=== PATIENT | male | born 1965 | race Caucasian/White ===

== ENCOUNTER 2021-04-03 17:35 | Inpatient (IN) | payer BC, OTHER ==
--- OUTSIDE RECORDS SUMMARY | 2021-04-03 17:37 | XMS REPORT | Continuity of Care Document ---
:1965 Author Organization [facility] t Address [address] [place] [address] Care Team Providers Name Role Phone Sinan Mistry NP Attending Clinician Denys AIKEN Attending Clinician Doctor Unassigned, Name Attending Clinician Unavailable Lab, Fam Pob I Attending Clinician Unavailable Problems This patient has no known problems. Allergies, Adverse Reactions, Alerts This patient has no known allergies or adverse reactions. Medications This patient has no known medications. Procedures This patient has no known procedures. Encounters Start End Encounter Admission Attending Care Care Encounter Source Date/Time Date/Time Type Type Clinicians Facility Department ID 2021-03-31 2021-03-31 Emergency [facility] [id number] 11:55:00 15:06:00 Roxann Garcia [id number] [place] [id number] [place] [phone] [phone] 2021-03-31 Telephone Denys [facility] [id number] 00:00:00 00:00:00 Shan [employer] [employer] [id number] [place] [id number] [facility] [phone] nal [address] One 2021-03-31 2021-03-31 Telephone Dneys [facility] [id number] 00:00:00 00:00:00 Shan [facility] [id number] [place] [id number] Professio [phone] nal [facility] Office [address] One 2021-03-30 2021-03-30 Telephone Denys [facility] [id number] 00:00:00 00:00:00 Shan [facility] [id number] [place] [id number] Professio [phone] nal [facility] Office Building One 2021-03-29 2021-03-29 [facility] [id number] 00:00:00 00:00:00 Shan [facility] [id number] [place] [id number] Professio [phone] nal [facility] Office [address] One 2021-03-24 2021-03-24 [facility] [id number] 00:00:00 00:00:00 Shan [facility] [id number] [place] [id number] Professio [phone] nal [facility] [address] One 2021-03-08 2021-03-08 Refill Doctor [facility] [id number] 00:00:00 00:00:00 Unassigned, Health [id number] [place] [id number] Professio [phone] nal [facility] [address] One 2021-03-08 2021-03-08 Refill Doctor [facility] [id number] 00:00:00 00:00:00 Unassigned, Health [id number] [place] [id number] Professio [phone] nal [facility] [address] One 2021-02-11 2021-02-11 [facility] [id number] 00:00:00 00:00:00 Shan [facility] [id number] [place] [id number] Professio [phone] [place] [address] [address] 2021-01-26 2021-01-26 Learning And Development Analyst Lab, [facility] [id number] 10:22:46 10:42:46 [facility] [id number] [place] [id number] Professio [phone] nal 044 Office [address] One 2021-01-26 2021-01-26 Office Mcfarlane, [facility] [id number] 07:03:39 07:18:39 Visit [facility] [id number] [place] [id number] Professio [phone] nal 044 [address] One Results This patient has no known results.
[2021-04-03] MEDS ORDERED: MORPHINE 4 MG/ML SYR ONE (19:09)
[2021-04-03] MEDS ORDERED: ONDANSETRON 4 MG/2 ML VIAL ONE (19:09)
[2021-04-03 19:14] LABS: Basophils % 1.5 % (0-1.3); Hematocrit 47.4 % (39.6-49.0); Lymphocytes % 31.3 % (15.3-44.8)
[2021-04-03 19:20] LABS: Protime INR 1.15
[2021-04-03 19:30] LABS: ALT/SGPT 42 U/L (12-78); AST/SGOT 17 U/L (15-37); Alkaline Phosphatase 51 U/L (45-117); BUN Blood Urea Nitrogen 18 mg/dL (7-18); Bicarbonate 25 mmol/L (21-32); Bilirubin Direct < 0.1 mg/dL (0-0.2); Bilirubin Total 0.4 mg/dL (0.2-1.0); Glucose Level 220 mg/dL (74-106); Magnesium 1.8 mg/dL (1.8-2.4); NT PRO-BNP 17 pg/mL (<125); Protein, Total 7.7 g/dL (6.4-8.2); Sodium Level 139 mmol/L (136-145); Troponin (Emerg Dept Use Only) < 0.02 ng/mL (0.0-0.045)
--- NOTE | 2021-04-03 20:02 | RAD REPORT ---
EXAM DESCRIPTION: Stefan Single View04/03/2021 7:24 pm CLINICAL HISTORY: Chest pain COMPARISON: 2014 FINDINGS: The lungs appear clear of acute infiltrate. The heart is normal size IMPRESSION: No acute abnormalities displayed
--- NOTE | 2021-04-03 20:49 | RAD REPORT ---
EXAM DESCRIPTION: CT - Angio Aorta For Dissection - 04/03/2021 8:34 pm CLINICAL HISTORY: . Chest and abdominal pain COMPARISON: None TECHNIQUE: Computed tomography angiography of the chest, abdomen pelvis were obtained. 100 cc Isovue 370 was administered intravenously. Coronal and sagittal reconstruction were performed. MIP 3D reconstruction was performed All CT scans are performed using dose optimization technique as appropriate and may include automated exposure control or mA/KV adjustment according to patient size. FINDINGS: An aortic dissection is not seen. An aortic aneurysm is not displayed. The celiac, SMA and DILIP are patent . 2 main left renal arteries A lung consolidation is not present. A pericardial effusion is not seen. A pleural effusion is not n oted. Fatty liver. Spleen, pancreas adrenals kidneys demonstrate no significant abnormality. The appendix is normal. There no evidence diverticulitis. Small left inguinal hernia contains fat. Sm all umbilical hernia Spondylosis involves lumbar spine resulting in spinal stenosis IMPRESSION: Negative for an aortic dissection.
--- NOTE | 2021-04-03 21:06 | EDPHYS ---
Physician Documentation [facility] Name: Ronaldo Corbett Age: 55 yrs Sex: Male : 1965 Arrival Date: 04/03/2021 Time: 17:37 Bed 4 Private MD: ED Physician Chavo Miles HPI: 04/03 18:16 This 55 yrs old Male presents to ER via Ambulatory with complaints of High jmm Blood Pressure, Chest Pain. 18:16 Onset: The symptoms/episode began/occurred gradually, 5 day(s) ago. Modifying factors: jmm The symptoms are aggravated by activity, The symptoms are alleviated by remaining still. This is a 55 year old male with a history of htn, DM that presents to the ED with complaints of left sided chest pain which radiates to the back. States his BP went to 200 systolic today with worsening pain. . Historical: - Allergies: 18:13 No Known Allergies; aa5 - PMHx: 18:13 Hypertension; Diabetes - IDDM; aa5 - PSHx: 18:13 facial sx; aa5 - Immunization history:: Adult Immunizations unknown. - Social history:: Smoking status: Patient denies any tobacco usage or history of. ROS: 18:16 Constitutional: Negative for fever, chills, and weight loss. jmm 18:16 Cardiovascular: Positive for chest pain. 18:16 All other systems are negative. Exam: 18:16 Constitutional: This is a well developed, well nourished patient who is awake, alert, jmm and in no acute distress. Head/Face: atraumatic. Eyes: EOMI, no conjunctival erythema appreciated ENT: Moist Mucus Membranes Neck: Trachea midline, Supple Chest/axilla: Normal chest wall appearance and motion. Cardiovascular: Regular rate and rhythm. No edema appreciated Respiratory: Normal respirations, no respiratory distress appreciated 18:16 Skin: General appearance color normal MS/ Extremity: Moves all extremities, no obvious deformities appreciated, no edema noted to the lower extremities Neuro: Awake and alert, normal gait Psych: Behavior is normal, Mood is normal, Patient is cooperative and pleasant 18:16 Abdomen/GI: Inspection: abdomen appears normal, Bowel sounds: normal, Palpation: soft, mild abdominal tenderness, in the left upper quadrant. Vital Signs: 18:12 BP 159 / 97; Pulse 82; Resp 18 S; Temp 97.8(TE); Pulse Ox 99% on R/A; Weight 121.11 kg aa5 (R); Height 6 ft. 2 in. (187.96 cm) (R); 19:30 BP 139 / 90; Pulse 82; Resp 18; Pulse Ox 98% on R/A; lp1 21:00 BP 157 / 84; Pulse 78; Resp 20; Pulse Ox 97% on R/A; lp1 22:30 BP 149 / 96; Pulse 73; Resp 15; Pulse Ox 98% on R/A; lp1 18:12 Body Mass Index 34.28 (121.11 kg, 187.96 cm) aa5 MDM: 18:16 Patient medically screened. adrien 21:05 Data reviewed: vital signs, nurses notes. Counseling: I had a detailed discussion with magdaleno the patient and/or guardian regarding: the historical points, exam findings, and any diagnostic results supporting the discharge/admit diagnosis, lab results, radiology results, the need for further work-up and treatment in the hospital. ED course: I discussed the patient with Maximiliano Wells PA-C whom accepted the patient to Dr. Antony's service. . 04/03 18:40 Order name: Basic Metabolic Panel; Complete [facility]: [facility] 04/03 18:40 Order name: CBC with Diff; Complete [facility]: 19:26 [facility] 04/03 18:40 Order name: LFT's; Complete Time: 19:32 [facility] 04/03 18:40 Order name: Magnesium; Complete Time: 19:32 [facility] 04/03 18:40 Order name: NT PRO-BNP; Complete Time: 19:32 [facility] 04/03 18:40 Order name: PT-INR; Complete Time: 19:32 [facility] 04/03 18:40 Order name: Troponin (emerg Dept Use Only); Complete Time: 19:32 [facility] 04/03 18:40 Order name: XRAY Chest (1 view); Complete [facility]: 20:05 [facility] 04/03 20:14 Order name: CT Aorta for Dissection; Complete Time: 21:02 [facility] 04/03 20:17 Order name: COVID-19 : Document "Date of Symptom Onset" if Symptomatic. 1 04/03 22:26 Order name: SARS-COV-2 RT PCR; Complete Time: 22:26 [facility] 04/03 18:40 Order name: EKG; Complete Time: 18:41 [facility] 04/03 18:40 Order name: Cardiac monitoring; Complete Time: 18:58 [facility] 04/03 18:40 Order name: EKG - Nurse/Tech; Complete Time: 18:58 [facility] 04/03 18:40 Order name: IV Saline Lock; Complete Time: 18:58 [facility] 04/03 18:40 Order name: Labs collected and sent; Complete Time: 18:58 [facility] 04/03 18:40 Order name: O2 Per Protocol; Complete Time: 18:53 [facility] 04/03 18:40 Order name: O2 Sat Monitoring; Complete Time: 18:53 [facility] 04/03 21:05 Order name: CONS Physician Consult EDNC Administered Medications: 18:57 Drug: Zofran (Ondansetron) 4 mg Route: IVP; Site: left wrist; hb 20:00 Follow up: Response: No adverse reaction lp1 18:58 Drug: morphine 4 mg Route: IVP; Site: left wrist; hb 20:00 Follow up: Response: Pain is decreased lp1 21:12 Drug: Aspirin Chewable Tablet 324 mg Route: PO; lp1 22:39 Follow up: Response: No adverse reaction lp1 Disposition: 04/03/21 21:06 Hospitalization ordered by Rajesh Antony for Observation. Preliminary diagnosis is Chest pain, unspecified. - Bed requested for Telemetry/MedSurg (observation). - Status is Observation. lp1 - Condition is Stable. - Problem is new. - Symptoms are unchanged. Addendum: 04/05/2021 08:02 Co-signature as Attending Physician, Chavo Miles MD I agree with the assessment and c perez plan of care. Signatures: Dispatcher [employer] EDNC Stella Taylor RN RN mw Anderson, Corey, MD MD cha Mickail, Joel, PA PA jmm Calderon, Audri RN RN aa5 Jumana Montoya RN RN lp1 Patito Gant, NADIA RN hb Corrections: (The following items were deleted from the chart) 04/03 22:36 21:06 Hospitalization Ordered by Rajesh Antony for Observation. Preliminary diagnosis mw is Chest pain, unspecified. Bed requested for Telemetry/MedSurg (observation). Status is Observation. Condition is Stable. Problem is new. Symptoms are unchanged. mir 22:58 22:36 04/03/2021 21:06 Hospitalization Ordered by Rajesh Antony for Observation. lp1 Preliminary diagnosis is Chest pain, unspecified. Bed requested for Telemetry/MedSurg (observation). Status is Observation. Condition is Stable. Problem is new. Symptoms are unchanged. mw
--- NOTE | 2021-04-03 21:06 | ER ---
Nurse's Notes [facility] Name: Ronaldo Corbett Age: 55 yrs Sex: Male : 1965 Arrival Date: 04/03/2021 Time: 17:37 Bed 4 Private MD: Diagnosis: Chest pain, unspecified Presentation: 04/03 18:12 Chief complaint: Patient states: "my blood pressure has been over 200 (systolic) for aa5 the past 5 days and I am having chest pains". Coronavirus screen: At this time, the client does not indicate any symptoms associated with coronavirus-19. Ebola Screen: Patient negative for fever greater than or equal to 101.5 degrees Fahrenheit, and additional compatible Ebola Virus Disease symptoms. Initial Sepsis Screen: Does the patient meet any 2 criteria? No. Patient's initial sepsis screen is negative. Does the patient have a suspected source of infection? No. Patient's initial sepsis screen is negative. Risk Assessment: Do you want to hurt yourself or someone else? Patient reports no desire to harm self or others. Onset of symptoms was March 2021. 18:12 Method Of Arrival: Ambulatory aa5 18:12 Acuity: MIAH 3 aa5 Historical: - Allergies: 18:13 No Known Allergies; aa5 - PMHx: 18:13 Hypertension; Diabetes - IDDM; aa5 - PSHx: 18:13 facial sx; aa5 - Immunization history:: Adult Immunizations unknown. - Social history:: Smoking status: Patient denies any tobacco usage or history of. Screenin:59 Abuse screen:. Abuse screen: Denies threats or abuse. Denies injuries from another. hb Nutritional screening: No deficits noted. Tuberculosis screening: No symptoms or risk factors identified. Fall Risk None identified. Assessment: 18:58 General: Appears in no apparent distress. Behavior is calm, cooperative. Pain: Pain hb currently is 8 out of 10 on a pain scale. Neuro: Level of Consciousness is awake, alert, obeys commands, Oriented to person, place, time, situation. Cardiovascular: Patient's skin is warm and dry. Rhythm is regular. Respiratory: Respiratory effort is even, unlabored, Respiratory pattern is regular, symmetrical. GI: No signs and/or symptoms were reported involving the gastrointestinal system. : No signs and/or symptoms were reported regarding the genitourinary system. EENT: No signs and/or symptoms were reported regarding the EENT system. Derm: Skin is pink, warm \\T\\ dry. Musculoskeletal: No signs and/or symptoms reported regarding the musculoskeletal system. 20:00 Reassessment: Patient appears in no apparent distress at this time. Denies chest pain lp1 at this time; aware of pending transfer to CT for imaging. 20:00 Neuro: Level of Consciousness is awake, alert, obeys commands. Cardiovascular: lp1 Patient's skin is warm and dry. Rhythm is regular. Respiratory: Respiratory effort is even, unlabored. Derm: Skin is pink, warm \\T\\ dry. Musculoskeletal: No deficits noted. 21:00 Reassessment: Patient appears in no apparent distress at this time. Patient is alert, lp1 oriented x 3, equal unlabored respirations, skin warm/dry/pink. 22:00 Reassessment: Patient appears in no apparent distress at this time. Patient is alert, lp1 oriented x 3, equal unlabored respirations, skin warm/dry/pink. Patient aware of pending admission. Vital Signs: 18:12 BP 159 / 97; Pulse 82; Resp 18 S; Temp 97.8(TE); Pulse Ox 99% on R/A; Weight 121.11 kg aa5 (R); Height 6 ft. 2 in. (187.96 cm) (R); 19:30 BP 139 / 90; Pulse 82; Resp 18; Pulse Ox 98% on R/A; lp1 21:00 BP 157 / 84; Pulse 78; Resp 20; Pulse Ox 97% on R/A; lp1 22:30 BP 149 / 96; Pulse 73; Resp 15; Pulse Ox 98% on R/A; lp1 18:12 Body Mass Index 34.28 (121.11 kg, 187.96 cm) aa5 ED Course: 17:37 Patient arrived in ED. rg4 18:12 Triage completed. aa5 18:12 Arm band placed on. aa5 18:12 EKG completed in triage. Results shown to MD. aa5 18:15 Lucas Delgadillo PA is PHCP. [facility] 18:15 Chavo Miles MD is Attending Physician. [facility] 18:33 Yasmani Friend, NADIA is Primary Nurse. bp 18:56 Inserted saline lock: 20 gauge in left wrist, using aseptic technique. Blood collected. hb 18:59 Patient has correct armband on for positive identification. Bed in low position. Call light in reach. classroom monitor on. Pulse ox on. NIBP on. 19:24 XRAY Chest (1 view) In Process Unspecified. EDMS 20:34 CT Aorta for Dissection In Process Unspecified. EDMS 21:06 Rajesh Antony is Hospitalizing Provider. [facility] 22:09 No provider procedures requiring assistance completed. Patient admitted, IV remains in lp1 place. Administered Medications: 18:57 Drug: Zofran (Ondansetron) 4 mg Route: IVP; Site: left wrist; hb 20:00 Follow up: Response: No adverse reaction lp1 18:58 Drug: morphine 4 mg Route: IVP; Site: left wrist; hb 20:00 Follow up: Response: Pain is decreased lp1 21:12 Drug: Aspirin Chewable Tablet 324 mg Route: PO; lp1 22:39 Follow up: Response: No adverse reaction 1 Outcome: 21:06 Decision to Hospitalize by Provider. [facility] 22:10 Condition: stable lp1 22:10 Instructed on the need for admit. 22:42 Admitted to Med/surg room 216, with chart, Report called to NADIA Lance lp1 22:58 Patient left the ED. lp1 Signatures: Dispatcher [employer] EDMS Lucas Delgadillo PA PA jmm Calderon, Audri, RN NADIA aa5 Jumana Motnoya RN RN lp1 Patito Gant RN RN hb Garcia, Rubi 4 Yasmani Friend RN RN bp
[2021-04-03] MEDS ORDERED: ASPIRIN 81 MG CHEWABLE TABLET ONE (21:30)
[2021-04-03] MEDS ORDERED: HYDRALAZINE HCL 20 MG/ML VIAL IV PRN (23:08)
[2021-04-03] MEDS ORDERED: ACETAMINOPHEN 500 MG TAB PO PRN (23:08)
[2021-04-03] MEDS ORDERED: NITROGLYCERIN 0.4 MG/TAB SL PRN (23:08)
[2021-04-03] MEDS ORDERED: ONDANSETRON 4 MG/2 ML VIAL IV PRN (23:08)
[2021-04-03] MEDS ORDERED: MORPHINE 2 MG/ML SYR IV PRN (23:08)
--- NOTE | 2021-04-04 01:04 | P.HP ---
Certification for Inpatient Patient admitted to: Observation With expected LOS: <2 Midnights Patient will require the following post-hospital care: None Practitioner: I am a practitioner with admitting privileges, knowledge of patient current condition, hospital course, and medical plan of care. Services: Services provided to patient in accordance with Admission requirements found in Title 42 Section 412.3 of the Code of Federal Regulations Patient History Date of Service: 04/04/21 Primary Care Provider: Denys Reason for admission: chest pain History of Present Illness: Mr. Corbett is a 55 yo M with HTN and DM who presents with 10/10 lower left sharp chest pain that radiates to the back. He says the pain comes at any time. He says this started last Sunday when he checked his BP and it was very elevated. He says he takes ibuprofen for the pain with mild improvement. Denies lightheadedness, dizziness, N/V. Reports diaphoresis. Family history of heart disease. Allergies No Known Drug Allergies Allergy (Verified 04/03/21 23:37) Unknown Home Medications: Amlodipine [Norvasc] 2.5 mg PO DAILY 04/04/21 Atenolol [Tenormin] 50 mg PO DAILY 04/04/21 Insulin Detemir [Levemir Flextouch] 80 unit SQ BEDTIME 04/04/21 Lisinopril [Zestril] 40 mg PO DAILY 04/04/21 Sitagliptin Phos/Metformin HCl [Janumet Xr 50-1,000 mg Tablet] 1 each PO BID 04/04/21 - Past Medical/Surgical History Has patient received pneumonia vaccine in the past: No Diabetic: Yes -: DM -: HTN -: mouth surgery - Family History Mother -: Heart disease, Diabetes Father -: Heart disease - Social History Smoking Status: Never smoker Alcohol use: No CD- Drugs: No Caffeine use: Yes Place of Residence: Home Review of Systems 10-point ROS is otherwise unremarkable Cardiovascular: Chest Pain Physical Examination - Vital Signs Temperature: 97.8 F Blood Pressure: 149/96 Pulse: 73 Respirations: 15 - Physical Exam General: Alert, In no apparent distress HEENT: Atraumatic, PERRLA, Mucous membr. moist/pink, EOMI, Sclerae nonicteric Neck: Supple, 2+ carotid pulse no bruit, No LAD, Without JVD or thyroid abnormality Respiratory: Clear to auscultation bilaterally, Normal air movement Cardiovascular: Regular rate/rhythm, Normal S1 S2 Gastrointestinal: Normal bowel sounds, No tenderness Musculoskeletal: No tenderness Integumentary: No rashes Neurological: Normal gait, Normal speech, Normal strength at 5/5 x4 extr, Normal tone, Normal affect Lymphatics: No axilla or inguinal lymphadenopathy - Studies Laboratory Data (last 24 hrs) 04/03/21 18:56: PT 13.2 H, INR 1.15 04/03/21 18:56: WBC 12.60 H, Hgb 15.9, Hct 47.4, Plt Count 262 04/03/21 18:56: Sodium 139, Potassium 4.0, BUN 18, Creatinine 0.94, Glucose 220 H, Magnesium 1.8, Total Bilirubin 0.4, AST 17, ALT 42, Alkaline Phosphatase 51 Assessment and Plan - Problems (Diagnosis) (1) HTN (hypertension) Current Visit: Yes Status: Chronic Qualifiers: Hypertension type: essential hypertension Qualified Code(s): I10 - Essential (primary) hypertension (2) T2DM (type 2 diabetes mellitus) Current Visit: Yes Status: Chronic Qualifiers: Diabetes mellitus intermediate frame tender insulin use: with group home use Diabetes mellitus complication status: without complication Qualified Code(s): E11.9 - Type 2 diabetes mellitus without complications; Z79.4 - intermediate project manager (current) use of insulin (3) Chest pain Current Visit: Yes Status: Acute Qualifiers: Chest pain type: unspecified Qualified Code(s): R07.9 - Chest pain, unspecified - Plan cardiology consulted trend troponisn and EKg daily ASA, BB, statin lipid panel and thyroid panel pending morphine and nitro PRN DVT ppx hydralazine PRN for BP spikes A1c pending Discharge Plan: Home Plan to discharge in: 24 Hours - Advance Directives Does patient have a Living Will: No Does patient have a Durable POA for Healthcare: No - Code Status/Comfort Care Code Status Assessed: Yes (full code) Critical Care: No Time Spent Managing Pts Care (In Minutes): 70
[2021-04-04 01:30] VITALS: BMI 34.8
[2021-04-04 04:10] LABS: Absolute Lymphocytes (CBC) 4.6 K/uL (0.7-4.9); Hematocrit 42.8 % (39.6-49.0); Lymphocytes % 39.2 % (15.3-44.8); MPV 9.1 fL (7.6-11.3); RBC Red Blood Cell Count 5.19 M/uL (4.33-5.43)
[2021-04-04 04:44] LABS: Albumin 3.5 g/dL (3.4-5.0); Bilirubin Total 0.4 mg/dL (0.2-1.0); Magnesium 1.8 mg/dL (1.8-2.4); Phosphorus 3.3 mg/dL (2.5-4.9); Potassium 4.2 mmol/L (3.5-5.1); Protein, Total 6.9 g/dL (6.4-8.2)
[2021-04-04 04:46] VITALS: TEMP 97
[2021-04-04 04:47] LABS: Thyroid Stimulating Hormone 4.11 uIU/mL (0.360-3.740)
[2021-04-04] MEDS ORDERED: METOPROLOL TAR 25 MG TAB PO SCH (06:00)
[2021-04-04] MEDS ORDERED: INSULIN -REGULAR HUMAN 50 UNIT/0.5 ML ML SQ SCH (07:30)
[2021-04-04] MEDS ORDERED: ASPIRIN EC 81 MG TAB PO SCH (09:00)
[2021-04-04] MEDS ORDERED: ENOXAPARIN 40 MG/0.4 ML SQ SCH (09:00)
[2021-04-04] MEDS ORDERED: lisinopriL 20 MG TAB PO SCH (09:00)
[2021-04-04] MEDS ORDERED: AMLODIPINE 2.5 MG TAB PO SCH (09:00)
[2021-04-04] MEDS ORDERED: atenoloL 50 MG TAB PO SCH (09:00)
[2021-04-04 09:09] VITALS: BP 155/80
[2021-04-04] MEDS ORDERED: HYDROCODONE/APAP 5/325 MG TAB PO ONE (09:13)
[2021-04-04 09:50] VITALS: O2SAT 95
--- NOTE | 2021-04-04 10:58 | P.DS ---
Admission Date: 04/03/21 Discharge Date: 04/04/21 Primary Care Provider: Denys Disposition: ROUTINE DISCHARGE Discharge Condition: FAIR Reason for Admission: chest pain Consultations: Cardiology-Dr. Jack - Problems (1) Chest pain Status: Acute Qualifiers: Chest pain type: unspecified Qualified Code(s): R07.9 - Chest pain, unspecified (2) HTN (hypertension) Status: Chronic Qualifiers: Hypertension type: essential hypertension Qualified Code(s): I10 - Essential (primary) hypertension (3) T2DM (type 2 diabetes mellitus) Status: Chronic Qualifiers: Diabetes mellitus correction insulin use: with terminal clerk use Diabetes mellitus complication status: without complication Qualified Code(s): E11.9 - Type 2 diabetes mellitus without complications; Z79.4 - MCC (current) use of insulin Brief History of Present Illness: 55-year-old gentleman with a history of hypertension diabetes presented to the emergency department with a complaint of left lower anterior chest pain that radiates to the back,. Patient reported elevated blood pressure along with the chest pain. His initial troponin in the ED negative. EKG unremarkable, chest x-ray no acute disease. CT dissection also unremarkable except fatty liver. Patient placed under observation for ACS rule out. Hospital Course: Patient placed under observation on the medical floor. Troponin trended negative. Patient seen in consultation by cardiology-Dr. Jack. ACS ruled out. Dr. Jack recommend outpatient stress test. Patient asymptomatic today. He is deemed stable for discharge. He is informed not to take his metformin today or tomorrow due to IV contrast use. He can resume taking it after 2 days. He will follow with Dr. Jack for arrangement for outpatient stress test. Vital Signs/Physical Exam: Temp Pulse Resp BP Pulse Ox 97 F 68 18 155/80 H 94 04/04/21 04:00 04/04/21 09:08 04/04/21 04:00 04/04/21 09:08 04/04/21 04:00 General: Alert, In no apparent distress, Oriented x3 HEENT: Mucous membr. moist/pink Neck: JVD not distended Respiratory: Clear to auscultation bilaterally, Normal air movement Cardiovascular: No edema, Regular rate/rhythm, Normal S1 S2 Gastrointestinal: Normal bowel sounds, Soft and benign, Non-distended, No tenderness Musculoskeletal: No swelling Integumentary: No rashes Neurological: Normal strength at 5/5 x4 extr Laboratory Data at Discharge: WBC 11.70 K/uL (4.3-10.9) H 04/04/21 03:43 Hgb 14.4 g/dL (13.6-17.9) 04/04/21 03:43 Hct 42.8 % (39.6-49.0) 04/04/21 03:43 Plt Count 251 K/uL (152-406) 04/04/21 03:43 PT 13.2 SECONDS (9.5-12.5) H 04/03/21 18:56 INR 1.15 04/03/21 18:56 Sodium 137 mmol/L (136-145) 04/04/21 03:43 Potassium 4.2 mmol/L (3.5-5.1) 04/04/21 03:43 BUN 16 mg/dL (7-18) 04/04/21 03:43 Creatinine 1.10 mg/dL (0.55-1.3) 04/04/21 03:43 Glucose 272 mg/dL (74-106) H 04/04/21 03:43 Phosphorus 3.3 mg/dL (2.5-4.9) 04/04/21 03:43 Magnesium 1.8 mg/dL (1.8-2.4) 04/04/21 03:43 Total Bilirubin 0.4 mg/dL (0.2-1.0) 04/04/21 03:43 AST 15 U/L (15-37) 04/04/21 03:43 ALT 38 U/L (12-78) 04/04/21 03:43 Alkaline Phosphatase 45 U/L (45-117) 04/04/21 03:43 Troponin I < 0.02 ng/mL (0.0-0.045) 04/04/21 03:43 Triglycerides 77 mg/dL (<150) 04/04/21 03:43 Cholesterol 181 mg/dL (<200) 04/04/21 03:43 HDL Cholesterol 36 mg/dL (40-60) L 04/04/21 03:43 Cholesterol/HDL Ratio 5.03 04/04/21 03:43 Home Medications: Amlodipine [Norvasc*] 5 mg PO DAILY #30 tab 04/04/21 Atenolol [Tenormin] 50 mg PO DAILY 04/04/21 Atorvastatin Calcium [Lipitor] 40 mg PO BEDTIME #30 tab 04/04/21 Insulin Detemir [Levemir Flextouch] 80 unit SQ BEDTIME 04/04/21 Lisinopril [Zestril] 40 mg PO DAILY 04/04/21 Sitagliptin Phos/Metformin HCl [Janumet Xr 50-1,000 mg Tablet] 1 each PO BID 04/04/21 New Medications: Atorvastatin Calcium [Lipitor] 40 mg PO BEDTIME #30 tab Amlodipine [Norvasc*] 5 mg PO DAILY #30 tab Diet: ADA Activity: Ad bobby Followup: Steven Jack MD [ACTIVE - CAN ADMIT] - 2-3 Days (Please call Dr. Jack's office at [phone] for arrangement for Stress test.) ManuelOT,ManuelOT [Primary Care Provider] - 1 Week (Call for appointment.)
--- NOTE | 2021-04-04 18:39 | CON ---
echocardiogram pending. He is asymptomatic now. His blood pressure is better. Allergies: NONE. Review of Systems: Negative. Social History: Negative. Family History: Positive for congestive heart failure. Medications: Include insulin, Norvasc, atenolol, lisinopril, and metformin. Physical Examination: Vital Signs: Stable, afebrile. HEENT: Negative. Neck: Supple with no bruit. Chest: Clear. Cardiac: Revealed a regular rhythm and rate with an S4 gallops. Abdomen: Benign. Extremities: Revealed no clubbing, cyanosis, or edema. Diagnostic Data: Showed a glucose of 298. The rest of it was normal. Impression And Plan: Chest pain secondary to hypertension. There is an echocardiogram pending. He has had a negative stress test. I think he needs to have a renal Doppler done to evaluate for renal artery stenosis. He can have his Norvasc dose, atenolol dose, and lisinopril dose all increased and we have to. Diabetes needs to be better controlled, probably with better diet. The patient can go h ome whenever it is okay with Dr. Antony. I will see him in the office as an outpatient. JAC/DASH Voice ID: [id number] Report ID: [id number]
[2021-04-04] MEDS ORDERED: ATORVASTATIN 40 MG TAB PO SCH (21:00)
[2021-04-04] MEDS ORDERED: INSULIN GLARGINE 100 UNITS/ML SQ SCH (21:00)
--- NOTE | 2021-04-05 08:20 | ECHO ---
HEIGHT: 6 ft 2 in WEIGHT: 271 lb 4.8 oz DATE OF STUDY: 04/04/[address]: Steven Jack MD 2-DIMENSIONAL: YES M.MODE: YES DOPPLER: YES COLOR FLOW: YES TDS: NO PORTABLE: NO DEFINITY: NO BUBBLE STUDY: NO DIAGNOSIS: CHEST PAIN CARDIAC HISTORY: CATHERIZATION: NO SURGERY: NO PROSTHETIC VALVE: NO PACEMAKER: NO MEASUREMENTS (cm) DIASTOLIC (NORMALS) SYSTOLIC (NORMALS) IVSd 1.0 (0.6-1.2) LA Diam 3.2 (1.9-4.0) LVEF 55-60% LVIDd 4.3 (3.5-5.7) LVIDs 2.7 (2.0-3.5) %FS 38% LVPWd 1.1 (0.6-1.2) Ao Diam 2.6 (2.0-3.7) 2 DIMENSIONAL ASSESSMENT: RIGHT ATRIUM: NORMAL LEFT ATRIUM: NORMAL RIGHT VENTRICLE: NORMAL LEFT VENTRICLE: NORMAL TRICUSPID VALVE: MITRAL VALVE: NORMAL PULMONIC VALVE: NORMAL AORTIC VALVE: NORMAL PERICARDIAL EFFUSION: NONE AORTIC ROOT: NORMAL LEFT VENTRICULAR WALL MOTION: NORMAL DOPPLER/COLOR FLOW: MILD TRICUSPID REGURGITATION. COMMENTS: NORMAL LEFT VENTRICULAR EJECTION FRACTION 55-60%. NORMAL WALL MOTION. MILD TRICUSPID REGURGTATION. TECHNOLOGIST: Santos WALKER
== END 2021-04-04 12:09 | disposition home or self-care (01) | DRG 313 ==
LOC: ER 17:35 → ERHOLD 21:04 → 2ND 22:44
PROVIDERS: ADMIT Internal Medicine; ATTEND Internal Medicine
DX: R07.9 Chest pain, unspecified (principal); I10 Essential (primary) hypertension; E11.9 Type 2 diabetes mellitus without complications; Z79.4 Long term (current) use of insulin; Z79.899 Other long term (current) drug therapy; Z20.822 Contact with and (suspected) exposure to COVID-19
CPT/HCPCS: 36415; 71045; 71275; 74175; 80048; 80053; 80061; 80076; 82947; 83036; 83735; 83880; 84100; 84439; 84443; 84484; 85025; 85610; 93005; 93306; 94760; 96374; 96375; 99285; J1650; J2270; J2405; Q9967; U0003